=== PATIENT | male | born 1950 | race Caucasian/White ===

== ENCOUNTER → 2023-10-05 06:24 | Outpatient (REF) | payer MEDICARE, OTHER, SELFPAY ==
[2023-10-05 07:15] LABS: % Basophils 0.3 % (0-2); % Eosinophils 1.6 % (0-6); % Immature Granulocytes 0.3 % (0-0.5); % Lymphocytes 30.9 % (20.5-51.1); % Monocytes 7.9 % (1.7-9.3); Absolute Eosinophils 0.1 10^3/uL (0-0.7); Absolute Lymphocytes 1.9 10^3/uL (1.2-3.4); Absolute Monocytes 0.5 10^3/uL (0.1-0.6); Absolute Neutrophils 3.7 10^3/uL (1.4-6.5); Hematocrit 40.1 % (39.0-52.0); Hemoglobin 13.2 g/dL (13.0-18.0); Mean Corp Hgb Conc. 32.9 g/dL (33.0-37.0); Mean Corpuscular Hgb 31.4 pg (27.0-31.0); Mean Corpuscular Volume 95.2 fL (80.0-94.0); Mean Platelet Volume 9.4 fL (7.4-10.4); Nucleated Red Blood Cells % 0 % (-); Platelet Count 257 10^3/uL (130-400); Red Blood Cell Count 4.21 10^6/uL (4.70-6.10); Red Cell Dist. Width 13.2 % (11.5-14.5); White Blood Cell Count 6.2 10^3/uL (4.8-10.8)
[2023-10-05 07:33] LABS: Protein/creatinine Ratio 1.2; Urine Protein 40 mg/dl
[2023-10-05 07:35] LABS: ALT (SGPT) 25 U/L (0-50); AST (SGOT) 36 U/L (17-59); Albumin 4.2 g/dl (3.5-5.0); Alkaline Phosphatase 70 U/L (38-126); Blood Urea Nitrogen 49 mg/dl (9-20); Calcium 9.2 mg/dl (8.4-10.2); Carbon Dioxide 27 mmol/L (22-30); Chloride 104 mmol/L (98-107); Glucose 77 mg/dl (70-99); Magnesium 1.6 mg/dl (1.6-2.3); Phosphorus 3.8 mg/dl (2.5-4.5); Potassium 4.3 mmol/L (3.5-5.1); Sodium 138 mmol/L (135-145); Total Bilirubin 0.6 mg/dl (0.2-1.3); eGFR > 60.00
[2023-10-05 07:59] LABS: Urine Albumin Trace (Neg - Trace); Urine Bilirubin Negative (Negative); Urine Character Clear (Clear); Urine Color Yellow; Urine Glucose Negative (Negative); Urine Ketone Negative (Negative); Urine Leukocyte Negative (Negative); Urine Nitrite Negative (Negative); Urine Occult Blood Negative (Negative); Urine Urobilinogen Negative (Neg - 1+)
[2023-10-05 09:33] LABS: Intact PTH 81.8 pg/ml (13.6-85.8)
[2023-10-07 04:04] LABS: BK Qnt NAAT IU/mL, Plasma Not Detected; BK Qnt NAAT Interp, Plasma Not Detected (Not Detected); BK Qnt NAAT log IU/mL, Plasma Not Detected log IU/mL
[2023-10-07 14:35] LABS: Cyclosporine A Results 107.6 ng/mL
== END ==
LOC: REG 06:24
PROVIDERS: ATTENDING PHYSICIAN Internal Medicine Nephrology; FAMILY PHYSICIAN Family Medicine
DX: Z94.0 Kidney transplant status (principal)
CPT/HCPCS: 36415; 80053; 80158; 81003; 82570; 83735; 83970; 84100; 84156; 85025; 87799

== ENCOUNTER → 2023-11-30 06:25 | Outpatient (REF) | payer MEDICARE, OTHER, SELFPAY ==
[2023-11-30 07:11] LABS: % Basophils 0.4 % (0-2); % Eosinophils 2.2 % (0-6); % Immature Granulocytes 0.2 % (0-0.5); % Lymphocytes 29.6 % (20.5-51.1); % Monocytes 6.8 % (1.7-9.3); % Neutrophils 60.8 % (42.2-75.2); Absolute Eosinophils 0.1 10^3/uL (0-0.7); Absolute Lymphocytes 1.6 10^3/uL (1.2-3.4); Absolute Monocytes 0.4 10^3/uL (0.1-0.6); Absolute Neutrophils 3.3 10^3/uL (1.4-6.5); Hematocrit 40.1 % (39.0-52.0); Hemoglobin 13.1 g/dL (13.0-18.0); Mean Corp Hgb Conc. 32.7 g/dL (33.0-37.0); Mean Corpuscular Hgb 31.5 pg (27.0-31.0); Mean Corpuscular Volume 96.4 fL (80.0-94.0); Mean Platelet Volume 10.3 fL (7.4-10.4); Nucleated Red Blood Cells % 0 % (-); Platelet Count 221 10^3/uL (130-400); Red Blood Cell Count 4.16 10^6/uL (4.70-6.10); Red Cell Dist. Width 12.9 % (11.5-14.5); White Blood Cell Count 5.5 10^3/uL (4.8-10.8)
[2023-11-30 07:58] LABS: ALT (SGPT) 22 U/L (0-50); AST (SGOT) 33 U/L (17-59); Albumin 3.8 g/dl (3.5-5.0); Alkaline Phosphatase 72 U/L (38-126); Blood Urea Nitrogen 48 mg/dl (9-20); Calcium 9.4 mg/dl (8.4-10.2); Carbon Dioxide 29 mmol/L (22-30); Chloride 102 mmol/L (98-107); Glucose 83 mg/dl (70-99); HDL Cholesterol 47 mg/dl; LDL Cholesterol, Calculated 112 mg/dl; Potassium 4.6 mmol/L (3.5-5.1); Sodium 139 mmol/L (135-145); Total Bilirubin 0.7 mg/dl (0.2-1.3); Total Cholesterol 170 mg/dl (50-199); Total Protein 6.8 g/dl (6.3-8.2); Triglyceride 56 mg/dl (10-149); Uric Acid 6.6 mg/dl (3.5-8.5); Very Low Density Lipoprotein 11 mg/dl (0-30); eGFR 58.73
[2023-11-30 08:04] LABS: Free T4 0.82 ng/dl (0.78-2.19)
[2023-11-30 08:18] LABS: TSH 2.27 uIU/ml (0.47-4.68)
== END ==
LOC: REG 06:25
PROVIDERS: ATTENDING PHYSICIAN Family Medicine
DX: E78.2 Mixed hyperlipidemia (principal); I10 Essential (primary) hypertension; E79.0 Hyperuricemia without signs of inflammatory arthritis and tophaceous disease; E04.1 Nontoxic single thyroid nodule
CPT/HCPCS: 36415; 80053; 80061; 84439; 84443; 84550; 85025

== ENCOUNTER → 2023-12-10 06:19 | Outpatient (REF) | payer MEDICARE, OTHER, SELFPAY | LOC: RAD 06:19 | PROVIDERS: ATTENDING PHYSICIAN Otolaryngology; FAMILY PHYSICIAN Family Medicine | DX: H90.A21 Sensorineural hearing loss, unilateral, right ear, with restricted hearing on the contralateral side (principal) | CPT/HCPCS: 70480 ==

== ENCOUNTER → 2024-04-26 06:21 | Outpatient (REF) | payer MEDICARE, OTHER, SELFPAY | LOC: RAD 06:21 | PROVIDERS: ATTENDING PHYSICIAN Radiology Diagnostic Radiology; FAMILY PHYSICIAN Family Medicine | DX: Z96.82 Presence of neurostimulator (principal) | CPT/HCPCS: 72070; 72100 ==

== ENCOUNTER → 2024-05-08 08:49 | Outpatient (REF) | payer MEDICARE, OTHER, SELFPAY | LOC: MRI 08:49 | PROVIDERS: ATTENDING PHYSICIAN Student in an Organized Health Care Education/Training Program; FAMILY PHYSICIAN Family Medicine | DX: H90.3 Sensorineural hearing loss, bilateral (principal); R26.89 Other abnormalities of gait and mobility; R42 Dizziness and giddiness | CPT/HCPCS: 70553; A9575 ==

== ENCOUNTER → 2024-08-07 06:19 | Outpatient (REF) | payer MEDICARE, OTHER, SELFPAY ==
[2024-08-07 07:54] LABS: Erythrocyte Sed Rate 9 mm/hour (0-20)
[2024-08-07 08:12] LABS: Blood Urea Nitrogen 69 mg/dl (9-20); Carbon Dioxide 24 mmol/L (22-30); Chloride 103 mmol/L (98-107); Glucose 80 mg/dl (70-99); Potassium 5.1 mmol/L (3.5-5.1); Sodium 137 mmol/L (135-145); eGFR > 60.00
[2024-08-07 10:10] LABS: Folate 6.5 ng/ml (2.76-20); Vitamin B12 250 pg/ml (239-931)
[2024-08-07 13:18] LABS: Lyme Antibody Screen, EIA Negative (Negative)
[2024-08-08 12:07] LABS: Intact PTH 34.6 pg/ml (13.6-85.8)
[2024-08-08 18:45] LABS: Angiotensin-1-converting Enzym <10 U/L (16-85)
[2024-08-09 02:46] LABS: ANA, IgG Reflex to HEp-2 None Detected (None Detected)
[2024-08-09 11:41] LABS: Cyclosporine A Results 75.6 ng/mL
[2024-08-09 14:13] LABS: Vitamin B1, Whole Blood 92 nmol/L (70-180)
== END ==
LOC: REG 06:19
PROVIDERS: ATTENDING PHYSICIAN Internal Medicine Nephrology; FAMILY PHYSICIAN Family Medicine; REFERRING PHYSICIAN Nurse Practitioner
DX: N18.30 Chronic kidney disease, stage 3 unspecified (principal); Z94.0 Kidney transplant status; Z79.899 Other long term (current) drug therapy
CPT/HCPCS: 36415; 80048; 80158; 82164; 82607; 82746; 83970; 84207; 84425; 85652; 86038; 86618

== ENCOUNTER → 2024-08-18 06:37 | Outpatient (REF) | payer MEDICARE, OTHER, SELFPAY | LOC: MRI 06:37 | PROVIDERS: ATTENDING PHYSICIAN Orthopaedic Surgery; FAMILY PHYSICIAN Family Medicine | DX: M54.50 Low back pain, unspecified (principal) | CPT/HCPCS: 72148 ==

== ENCOUNTER → 2024-09-06 06:39 | Outpatient (REF) | payer MEDICARE, OTHER, SELFPAY | LOC: MRI 06:39 | PROVIDERS: ATTENDING PHYSICIAN Nurse Practitioner; FAMILY PHYSICIAN Family Medicine | DX: H93.11 Tinnitus, right ear (principal) | CPT/HCPCS: 70544 ==

== ENCOUNTER → 2024-10-23 06:22 | Outpatient (REF) | payer MEDICARE, OTHER, SELFPAY ==
[2024-10-23 09:07] LABS: Folate 7.2 ng/ml (2.76-20); Vitamin B12 892 pg/ml (239-931)
== END ==
LOC: REG 06:22
PROVIDERS: ATTENDING PHYSICIAN Nurse Practitioner Family; FAMILY PHYSICIAN Family Medicine
DX: E53.8 Deficiency of other specified B group vitamins (principal)
CPT/HCPCS: 36415; 82607; 82746